=== PATIENT | male | born 1955 | race American Indian/Alaskan Native ===

== ENCOUNTER 2017-09-28 07:02 | Emergency (ER) | payer SELFPAY ==
[2017-09-28 07:11] VITALS: O2SAT 98
[2017-09-28 07:12] VITALS: BMI 22.8
[2017-09-28 07:33] VITALS: RESP 19; TEMP 97
--- NOTE | 2017-09-28 07:59 | ED PDOC ---
HPI: General Adult Time Seen by Provider: 09/28/17 07:17 Chief Complaint (Nursing): Back Pain Chief Complaint (Provider): Detox History Per: Patient Additional Complaint(s): 62yo male with history of hypertension, chronic back pain for the past 5 years, presents to ED today requesting detoxification from alcohol. Patient states he is a daily drinker and his last drink was prior to arrival today. Patient denies any withdrawal symptoms, abdominal pain, vomiting, diarrhea, or chest pain. Patient states he has not followed up with a specialist for his back pain as he does not have a PCP and was unable to get a referral. He denies any changes in his back pain today. Patient has no other medical complaints. Past Medical History Reviewed: Historical Data, Nursing Documentation, Vital Signs Vital Signs: Last Vital Signs Temp 97 F L 09/28/17 08:59 Pulse 78 09/28/17 08:59 Resp 19 09/28/17 08:59 BP 128/78 09/28/17 08:59 Pulse Ox 98 09/28/17 08:59 - Medical History PMH: Back Problems, Gastritis, HTN Denies: Diabetes - Surgical History Surgical History: No Surg Hx - Family History Family History: States: No Known Family Hx - Social History Alcohol: > 2 Drinks/Day - Allergies Allergies/Adverse Reactions: Allergies Allergy/AdvReac Type Severity Reaction Status Date / Time No Known Allergies Allergy Verified 09/28/17 07:25 Review of Systems ROS Statement: Except As Marked, All Systems Reviewed And Found Negative Constitutional: Negative for: Fever, Chills Cardiovascular: Negative for: Chest Pain Gastrointestinal: Negative for: Vomiting, Abdominal Pain, Diarrhea Psych: Positive for: Other (requesting detox). Negative for: Withdrawal Physical Exam - Reviewed Nursing Documentation Reviewed: Yes Vital Signs Reviewed: Yes - Physical Exam Appears: Positive for: Non-toxic Head Exam: Positive for: ATRAUMATIC, NORMAL INSPECTION, NORMOCEPHALIC Skin: Positive for: Normal Color Eye Exam: Positive for: Normal appearance Neck: Positive for: Supple Cardiovascular/Chest: Positive for: Regular Rate, Rhythm Respiratory: Positive for: Normal Breath Sounds. Negative for: Wheezing Gastrointestinal/Abdominal: Positive for: Normal Exam, Soft. Negative for: Tenderness Back: Positive for: Normal Inspection, Other (paralumbar tenderness to palpation ) Extremity: Positive for: Normal ROM. Negative for: Deformity, Swelling Neurologic/Psych: Positive for: Alert, Oriented, Gait (steady). Negative for: Motor/Sensory Deficits - ECG O2 Sat by Pulse Oximetry: 98 (RA) Pulse Ox Interpretation: Normal Medical Decision Making Medical Decision Making: Impression: Request for detox, chronic back pain Plan: -- Alcohol serum -- Motrin 600 mg PO Patient states he called EMS from a gas station in [place]. Patient given referral from crisis for detoxification. Scribe Attestation: Documented by Blanca Shah acting as a scribe for Abril Guajardo MD. Provider Attestation: All medical record entries made by the Scribe were at my direction and personally dictated by me. I have reviewed the chart and agree that the record accurately reflects my personal performance of the history, physical exam, medical decision making, and the department course for this patient. I have also personally directed, reviewed, and agree with the discharge instructions and disposition. Disposition - Clinical Impression Clinical Impression: Chronic back pain, Desire for detoxification - Patient ED Disposition Is Patient to be Admitted: No Doctor Will See Patient In The: Office Counseled Patient/Family Regarding: Studies Performed, Diagnosis, Need For Followup - Disposition Referrals: [facility] [Outside] Disposition: Routine/Home Disposition Time: 09:00 Condition: GOOD Instructions: Chronic Pain (DC), Alcohol Abuse and Alcoholism (DC)
[2017-09-28 09:00] VITALS: BP 128/78; PULSE 78
== END 2017-09-28 09:05 | disposition home or self-care (01) ==
LOC: H.ER 07:02
DX: M54.9 Dorsalgia, unspecified (principal); G89.29 Other chronic pain; I10 Essential (primary) hypertension
CPT/HCPCS: 99282; G0480